=== PATIENT | female | born 1990 | race Caucasian/White ===

== ENCOUNTER 2016-10-11 19:56 | Emergency (ER) | payer OTHER ==
[~2016-10-11 19:56] MED LIST: HYCODAN60 ML 5MG/ PO; LORTAB 5/500 TA1 TA1 PO; MEDROL4 MG/DOSE- PO; PEN-VEE K PO; ZITHROMAX1 G/PKT PO
[2016-10-11 22:56] LABS: URINE SOURCE CLEAN CATCH
[2016-10-11 23:04] LABS: URINE APPEARANCE CLEAR; URINE BILIRUBIN NEG (NEG); URINE BLOOD NEG (NEG); URINE COLOR DK YELLOW; URINE GLUCOSE NEG (NEG); URINE KETONE NEG (NEG); URINE LEUKOCYTE ESTERASE NEG (NEG); URINE NITRATE NEG (NEG); URINE PROTEIN NEG (NEG); URINE SPECIFIC GRAVITY 1.029 (1.003-1.035)
[2016-10-11 23:13] LABS: CULTURE INDICATED? NO
== END 2016-10-11 23:32 | disposition home or self-care (01) ==
LOC: CED 19:56
PROVIDERS: Emergency Medicine
DX: F11.10 Opioid abuse, uncomplicated (principal); F41.9 Anxiety disorder, unspecified; F17.210 Nicotine dependence, cigarettes, uncomplicated
CPT/HCPCS: 81003; 84703; 99283